=== PATIENT | male | born 1995 | race Caucasian/White ===

== ENCOUNTER 2021-12-23 15:35 | Emergency (ER) | payer SELFPAY ==
[2021-12-23] MEDS ORDERED: Cyclobenzaprine 10 MG TAB ONE (16:19)
[2021-12-23] MEDS ORDERED: traMADol HCl 50 MG TAB ONE ×2 (16:19→16:20)
[2021-12-23] MEDS ORDERED: Ketorolac Tromethamine 30 MG/ML VIAL ONE (16:19)
== END 2021-12-23 17:47 | disposition home or self-care (01) ==
LOC: ERS 15:35
DX: M48.061 Spinal stenosis, lumbar region without neurogenic claudication (principal); I10 Essential (primary) hypertension; E78.5 Hyperlipidemia, unspecified
CPT/HCPCS: 72131; 96372; J1885

== ENCOUNTER 2023-04-15 16:45 | Emergency (ER) | payer BC ==
[2023-04-15 19:11] LABS: SARS-CoV-2 NAA Rapid Test Not Detected (NotDetected)
== END 2023-04-15 19:13 | disposition home or self-care (01) ==
LOC: ERS 16:45
DX: J01.90 Acute sinusitis, unspecified (principal); B34.9 Viral infection, unspecified; I10 Essential (primary) hypertension; F17.290 Nicotine dependence, other tobacco product, uncomplicated
CPT/HCPCS: 99283

== ENCOUNTER 2023-06-04 16:09 | Emergency (ER) | payer BC, SELFPAY ==
[2023-06-04] MEDS ORDERED: Cyclobenzaprine 10 MG TAB ONE (17:02)
[2023-06-04] MEDS ORDERED: Ketorolac Tromethamine 30 MG (1 mL) VIAL ONE (17:02)
[2023-06-04] MEDS ORDERED: traMADol HCl 50 MG TAB ONE (17:03)
== END 2023-06-04 17:25 | disposition home or self-care (01) ==
LOC: ERS 16:09
DX: E78.5 Hyperlipidemia, unspecified (principal); F17.290 Nicotine dependence, other tobacco product, uncomplicated; Z79.899 Other long term (current) drug therapy
CPT/HCPCS: 96372; 99283; J1885